=== PATIENT | female | born 1970 | race Hispanic/Latino ===

== ENCOUNTER 2017-03-05 17:23 | Emergency (ER) | payer OTHER ==
[~2017-03-05] VITALS: Ht 167.6 cm; Wt 81.8 kg
[~2017-03-05 17:23] MED LIST: DOCU50CA7 PO; FLUT12AE8 IH; HYDR25CA PO; IBUP800T28 PO; VENL75CA95 PO
[2017-03-05 17:36] VITALS: BP 135/85; PULSE 67; RESP 16; O2SAT 99
--- NOTE | 2017-03-05 18:28 | ED.REPORT ---
HPI-Abd Pain F 40 and Over Date of Service Mar 05, 2017 ED Provider: Placido Nur MD A 47 year old female with no pertinent medical history presents to the ED complaining of left lower abdominal pain that began at 0330 this morning. Associated symptoms include dysuria, increased urinary frequency, hematuria and bilateral flank pain. Her symptoms have been constant since onset. Patient admits to possibility of . She denies any previous history of UTI's. Patient denies any recent fever or vomiting. Nursing Notes Stated Complaint: PAIN IN ABDOMINAL Chief Complaint: Female Abdominal Pain Nursing Notes Reviewed: Yes Allergies: Coded Allergies: No Known Drug Allergies (Verified Allergy, Unknown, 07/06/15) Scheduled Fluticasone Propionate (Flovent HFA 110 mcg) 12 Gm Aer.w.adap 2 PUFFS IH BID Venlafaxine ER (Venlafaxine ER) 75 Mg Cap.er.24h 75 MG PO DAILY Scheduled PRN Docusate Sodium (Docusate Sodium) 50 Mg Capsule 100 MG PO BID PRN PRN For Constipation Hydroxyzine Pamoate (Vistaril) 25 Mg Capsule 25 MG PO QID PRN PRN For Itching Ibuprofen (Ibuprofen) 800 Mg Tablet 800 MG PO TID PRN PRN For Pain General Time Seen by MD: 18:25 Chief Complaint Abdominal pain Hx Obtained From: Patient Arrived By: Walk-in Sudden in Onset?: No Onset Occurred: 5 - 8 hours ago Symptom Duration: Since onset Progression since Onset: Unchanged Location: : LUQ Quality: Painful Radiation: : Does not radiate Severity: Current: Mild Severity: Maximum: Moderate Associated with: Reports: Dysuria, Hematuria Additional Notes: Flank pain Pertinent Negative: Pt denies other symptoms Recent Healthcare: No recent doctor visit, No recent hospitalization Past Medical History Past Medical History Asthma Past Surgical History Tubal Ligation I & D Smoking History Never Smoker Social History Other Social History: Good social support, Local resident Ambulatory Status Independent Review of Systems GI: Reports: Abdominal pain Female: Reports: Dysuria, Flank pain, Hematuria, Urinary frequency Complete sys rev & neg: except as marked. Physical Exam Vital Signs Vital Signs (First) Date Time Temp Pulse Resp B/P Pulse Ox O2 Delivery O2 Flow Rate FiO2 03/05/17 17:36 36.7 67 16 135/85 99 03/05/17 19:18 Room Air Initial VS: Reviewed Head / Eyes: Atraumatic, Normocephalic, PERRL Neck: Supple, Non-tender, Full range of motion Extremities: Vascular intact, Neuro intact, No swelling, No tenderness Skin: Warm, Dry, No cyanosis Neurologic: Alert, Oriented, Nonfocal Psychiatric: Mood/affect normal, Behavior normal, Normal thought content General/Constitutional: Awake, Alert, No acute distress, Well appearing, Well developed Respiratory / Chest: Atraumatic, Breath sounds NL, Breath sounds = bilat, No respiratory distress Cardiovascular: Heart rate NL, Regular rhythm, Heart sounds NL Abdomen: Atraumatic, Soft Tenderness/Guarding/Rebound: Positive: Guarding involuntary, Tender LLQ... Back: Atraumatic BACK: Pt reports pain in bilateral flank Interpretation & Diagnostics Lab Results Interpretation Test 03/05/17 18:01 Urine Color Yellow (YELLOW) Urine Appearance Clear (CLEAR,HAZY) Urine pH 8.0 (5.0-8.0) Urine Specific [place] 1.010 (1.003-1.035) Urine Protein Negativemg/dL (NEG,TRACE) Urine Glucose (UA) Negativemg/dL (NEGATIVE) Urine Ketones Negativemg/dL (NEGATIVE) Urine Occult Blood Small (NEGATIVE) Urine Nitrite Negative (NEGATIVE) Urine Bilirubin Negative (NEGATIVE) Urine Urobilinogen Normalmg/dL (NORMAL) Urine Leukocyte Esterase Small (NEGATIVE) Urine RBC 3-10/hpf (0-2) Urine WBC 11-50/hpf (0-5) Urine Epithelial Cells Few/hpf (NONE-MOD) Urine Crystals None seen (NONE SEEN) Urine Bacteria Few/hpf (NONE-FEW) Urine Hyaline Casts None/lpf (NONE) Urine Granular Casts None seen (NONE SEEN) Urine Waxy Casts None seen (NONE SEEN) Urine Red Blood Cell Casts None seen (NONE SEEN) Urine White Blood Cell Casts None seen (NONE SEEN) Urine Mucus None seen (None Seen) Urine Trichomonas None seen (NONE SEEN) Urine Yeast None (NONE SEEN) Urinalysis Comment None Urine Culture Reflexed Indicated Point of Care Testing: Preg test neg - urine General Lab Results Interp 2: Urinalysis NL except (+ Blood and Trace protein) Re-Eval/Medical Decision Re-Evaluation/Progress : Time of Eval: 18:44 Patient Status: Condition improved Re-Evaluation/Progress Note: Pt is informed of her urine results and the plan to discharge with follow-up. All questions are addressed. She understands and agrees with the intended treatment plan. Counseled Regarding: Diagnosis, Lab results, Need for follow-up, When/why to return to ED Discharge & Departure Primary Impression: Urinary tract infection Urinary tract infection type: site unspecified Hematuria presence: with hematuria Qualified Code: N39.0 - Urinary tract infection, site not specified Additional Impression: Pyelonephritis Disposition: Home Discharge Condition All VS Reviewed: Yes Condition: Improved Patient Instructions: Kidney Infection (ED), Urinary Tract Infection in Women ( ED) Additional Instructions: Thank you for trusting us with your care this evening. Your urine results are indicative of a urinary tract infection. Please begin taking the Cipro tomorrow as directed. Take the full course of the antibiotic. Take 800 mg of ibuprofen every 8 hours for pain. Use phenazopyridine as directed on the box for the burning sensation. This medication can be purchased [id number] without a prescription. It is often called: Urostat. Make sure to drink plenty of fluid for the next few days. I recommend that you schedule a follow-up appointment with your primary care physician in the next 2-3 days for a recheck. Please return to the emergency department for any new or worsening conditions including any worsening abdominal pain, high fevers, shaking chills or large amounts of blood in your urine. Referrals: Andrew Islas MD (PCP) Elif Attestation Portions of this note were transcribed by Rajni Pelaez. I, Dr. Nur personally performed the history, physical exam and medical decision-making; I reviewed and confirmed the accuracy of the information in the transcribed note. Signed by: Elif Wright, 03/05/17 1906. copies to: Andrew Islas MD, Kirk H MD Mar 05, 2017 18:28 RAJNI PELAEZ Mar 05, 2017 18:47
[2017-03-05 18:30] LABS: APPEARANCE,URINE CLEAR (CLEAR,HAZY); COLOR,URINE YELLOW (YELLOW); OCCULT BLOOD,URINE SMALL (NEGATIVE); UROBILINOGEN,URINE NORMAL (NORMAL)
[2017-03-05] MEDS ORDERED: Nitrofurantoin Monohyd-Macrocryst 100 mg Capsule PO ONE (18:40)
[2017-03-05] MEDS ORDERED: Phenazopyridine 97.5 mg Tablet PO ONE (18:40)
[2017-03-05] MEDS ORDERED: HYDROcodone-APAP 7.5-325 mg Tablet PO ONE (19:00)
[2017-03-05] MEDS ORDERED: _HYDROcodone/APAP 5-325 mg Tablet PO PRN (19:05)
[2017-03-05 19:18] VITALS: BP 135/87; PULSE 73; O2SAT 100
[2017-03-05 19:33] VITALS: BP 135/87; PULSE 73; O2SAT 100
[2017-03-05] MEDS ORDERED: _Ciprofloxacin 500 mg Tablet PO SCH (20:30)
== END 2017-03-05 19:36 | disposition home or self-care (01) ==
LOC: SED 17:23
DX: N39.0 Urinary tract infection, site not specified (principal); N10 Acute pyelonephritis; J45.909 Unspecified asthma, uncomplicated